=== PATIENT | female | born 1940 | race American Indian/Alaskan Native ===

== ENCOUNTER 2017-02-28 13:27 | Outpatient (CLI) | payer MEDICARE ==
--- NOTE | 2017-02-28 15:20 | XRay Report ---
PA and lateral chest: Wheezing, cough. The aorta is tortuous and the heart is normal in size. The lungs are hyperinflated. There are no infiltrates nor effusions. No vascular congestion. Unremarkable bony structures. No prior exam for comparison. Impression: Hyperinflation.
== END 2017-02-28 13:28 | disposition home or self-care (01) ==
LOC: XRAY 13:27
PROVIDERS: ATTEND Internal Medicine
DX: J98.11 Atelectasis (principal); R06.2 Wheezing
CPT/HCPCS: 71020

== ENCOUNTER 2017-07-07 10:03 | Outpatient (CLI) | payer MEDICARE ==
[2017-07-07 10:50] LABS: Blood Urea Nitrogen 29 mg/dL (7-17)
--- NOTE | 2017-07-07 14:37 | Cat Scan Report ---
FINAL REPORT PROCEDURE: CT ABDOMEN PELVIS W CON TECHNIQUE: Computerized axial tomography of the abdomen and pelvis was performed after the IV injection of iodinated nonionic contrast. HISTORY: LEFT LOWER QUADRANT PAIN COMPARISON: No prior studies are available for comparison. FINDINGS: Lower Lung schulte: Right diaphragm is elevated of indeterminate chronicity. There are no prior studies. There is minimal dependent atelectasis. Lung bases otherwise are clear. Upper Abdomen: There is a 5.8 millimeter well-circumscribed low-density nodule in the left lobe of the liver anteriorly inferiorly suggesting a small hepatic cyst. The liver is otherwise unremarkable. The gallbladder is surgically absent. The adrenal glands, the pancreas and the spleen are unremarkable. Kidneys, Ureters and Urinary bladder: There is a nonobstructing 5.3 x 2.7 millimeter calculus in the upper 3rd of the left kidney. No other renal or ureteral calculi are seen. There is no hydronephrosis. No renal masses are identified. Urinary bladder is only partially filled and shows no gross abnormality. Retroperitoneum: Atherosclerotic changes are seen in the abdominal aorta. No aneurysm is visualized. Nonspecific subcentimeter lymph nodes are seen in the retroperitoneum. No pathologically enlarged lymph nodes are identified. Bowel: There is mild sigmoid diverticulosis and mild diverticulosis in the splenic flexure and descending colon. No evidence of diverticulitis. No evidence of bowel obstruction ascites or free intraperitoneal gas. The appendix is not visualized. No inflammatory change seen in the right lower quadrant. There is a moderate size umbilical hernia containing adipose tissue. No herniated loops of bowel are identified. Reproductive organs: Uterus appears to be surgically absent. No abnormal adnexal masses are seen. There is increased prominence of the soft tissues in the perineum anteriorly. This may be due to relaxation of the pelvic floor. I cannot exclude a the vaginal mass. Correlation with physical exam recommended. Other: No acute bony abnormalities are identified. There asymmetry in the musculature of the lateral ocasio of the abdomen. On images 57 through image 83 there is a band of increased soft tissue projecting towards peritoneal cavity. This measures 4 point 3 centimeter AP, 2.2 centimeter transverse and extends craniocaudal approximately 7 centimeters. Etiology is uncertain. This could be related to previous trauma to the musculature of the left lateral abdominal wall and mild muscular herniation centrally. I cannot exclude a muscular mass or lymphoma. Hematoma could also present this manner. Correlation with physical exam recommended. This is seen on axial images 59 through image 87 series 3 axial images. This is also visualized on coronal image 81 series 201 and multiple adjacent images. IMPRESSION: Mild colonic diverticulosis without evidence of diverticulitis. Prior cholecystectomy. Small hepatic cyst is suspected. Small nonobstructing calculus left kidney. Asymmetric prominence left lateral abdominal wall as described. This could represent benign etiology such as internal muscular hernia from previous trauma. I cannot exclude a mass such as a primary muscular mass or lymphoma. Hemorrhage could also present in this manner. Correlation with physical exam is recommended. Please see above image reference numbers. Prominent soft tissues in the region of the vagina inferiorly anteriorly. Soft tissues appear mildly asymmetric and mildly prominent.. This could be artifact from relaxation of the pelvic floor. A mass cannot be excluded. Correlation with physical exam is recommended. This is seen on sagittal reconstruction image 96 series 202 and axial image 149 series 3. Moderate-sized umbilical hernia present as described.
== END 2017-07-07 10:04 | disposition home or self-care (01) ==
LOC: CT 10:03
PROVIDERS: ATTEND Internal Medicine
DX: N20.0 Calculus of kidney (principal); K57.30 Diverticulosis of large intestine without perforation or abscess without bleeding; K42.9 Umbilical hernia without obstruction or gangrene; J98.6 Disorders of diaphragm; J98.11 Atelectasis; I70.0 Atherosclerosis of aorta; Z90.49 Acquired absence of other specified parts of digestive tract; Z90.710 Acquired absence of both cervix and uterus
CPT/HCPCS: 36415; 74177; 82565; 84520; Q9967

== ENCOUNTER 2017-07-30 13:30 | Outpatient (CLI) | payer MEDICARE ==
--- NOTE | 2017-07-30 14:23 | XRay Report ---
CHEST 2 VIEWS INDICATION: Cough. COMPARISON: 02/28/2017 FINDINGS: PA and lateral chest radiographs demonstrate stable cardiomediastinal silhouette. Clear, slightly hyperexpanded lungs. Demineralized bones with few age-appropriate degenerative changes as along the spine and shoulders. Stable cholecystectomy clips. CONCLUSION: No acute chest process, stable. Thank you for the opportunity to participate in this patient's care.
== END 2017-07-30 13:31 | disposition home or self-care (01) ==
LOC: XRAY 13:30
PROVIDERS: ATTEND Internal Medicine
DX: R05 Cough (principal); R50.9 Fever, unspecified; M47.894 Other spondylosis, thoracic region; M19.011 Primary osteoarthritis, right shoulder; M19.012 Primary osteoarthritis, left shoulder; Z90.49 Acquired absence of other specified parts of digestive tract
CPT/HCPCS: 71046

== ENCOUNTER 2017-11-27 06:05 | Observation (INO) | payer MEDICARE ==
[2017-11-27] MEDS ORDERED: NACL BACTERIOSTATIC INFILTRATI ONE (06:36)
[2017-11-27] MEDS ORDERED: ZOFRAN IV PRN ×2 (06:58→10:49)
[2017-11-27] MEDS ORDERED: DILAUDID IV PRN (06:58)
[2017-11-27] MEDS ORDERED: SUBLIMAZE IV ONE (06:58)
[2017-11-27] MEDS ORDERED: FLAGYL 500 MG/100 ML 500 MG/100 ML BAG IV SCH (07:00)
[2017-11-27] MEDS ORDERED: XYLOCAINE 1% 20 mL INFILTRATI NR (07:00)
[2017-11-27] MEDS ORDERED: VERSED IV NR (07:00)
[2017-11-27] MEDS ORDERED: LEVAQUIN 500MG/100ML 500 MG/100 ML BAG IV SCH (07:00)
[2017-11-27] MEDS ORDERED: MARCAINE 0.5% INFILTRATI NR ×2 (07:00→07:14)
[2017-11-27] MEDS ORDERED: NEURONTIN PO NR (07:00)
[2017-11-27] MEDS ORDERED: LACTATED RINGERS 1,000 ML IV SCH (07:00)
--- NOTE | 2017-11-27 07:11 | Anesthesia Consultation ---
Anesthesia Consult and Med Hx Date of service: 11/27/17 - Airway Anesthetic Teeth Evaluation: Good ROM Head & Neck: Adequate Mental/Hyoid Distance: Adequate Mallampati Class: Class II Intubation Access Assessment: Good - Pulmonary Exam CTA: Yes - Cardiac Exam Cardiac Exam: No Murmur - Pre-Operative Health Status ASA Pre-Surgery Classification: ASA3 Proposed Anesthetic Plan: General Nerve Block: TAP - Pulmonary Hx Smoking: Yes (QUIT IN 1991) - Cardiovascular System Hx Hypertension: Yes (IN THE 80'S) - Central Nervous System Hx Psychiatric Problems: Yes (DEMENTIA) - Endocrine Hx Non-Insulin Dependent Diabetes: Yes - Other Systems Hx Alcohol Use: No Hx Substance Use: No Hx Cancer: No
--- NOTE | 2017-11-27 07:12 | Anesthesia Day of Surgery ---
Anesthesia Day of Surgery - Day of Surgery Patient Examined: Yes Patient H&P Reviewed: Yes Patient is NPO: Yes
[2017-11-27] MEDS ORDERED: PEPCID IV ONE (07:25)
[2017-11-27] MEDS ORDERED: ZOFRAN ONE (07:38)
[2017-11-27] MEDS ORDERED: QUELICIN ONE (07:38)
[2017-11-27] MEDS ORDERED: SUBLIMAZE ONE (07:38)
[2017-11-27] MEDS ORDERED: REGLAN ONE (07:38)
[2017-11-27] MEDS ORDERED: XYLOCAINE MPF 2% ONE (07:38)
[2017-11-27] MEDS ORDERED: DIPRIVAN 10 MG/ML IV ONE (07:39)
[2017-11-27] MEDS: HEPARIN SUB-Q NR ×2 (07:51→22:11)
[2017-11-27] MEDS ORDERED: BUPIVACAINE LIPOSOME INFILTRATI ONE (08:00)
[2017-11-27] MEDS ORDERED: PEPCID PO NR (08:00)
[2017-11-27] MEDS ORDERED: SODIUM CHLORIDE 0.9% INFILTRATI ONE (08:00)
[2017-11-27] MEDS ORDERED: DECADRON IV NR (08:00)
[2017-11-27] MEDS ORDERED: ZEMURON IV ONE (08:00)
[2017-11-27] MEDS ORDERED: LACTATED RINGERS 1,000 ML ONE ×2 (08:19→10:38)
[2017-11-27] MEDS ORDERED: ePHEDrine 50 MG/5 ML-0.9% NACL IV ONE (08:28)
[2017-11-27] MEDS ORDERED: NACL 0.9% IR ONE (09:14)
[2017-11-27] MEDS ORDERED: ROBINUL ONE (10:25)
[2017-11-27] MEDS ORDERED: BLOXIVERZ ONE (10:25)
[2017-11-27] MEDS ORDERED: TYLENOL PO PRN (10:49)
[2017-11-27] MEDS ORDERED: SODIUM CHLORIDE FLUSH SYRINGE 10 ML IV PRN (10:49)
[2017-11-27] MEDS ORDERED: NARCAN 0.4 MG/1 ML IV PRN (10:49)
[2017-11-27] MEDS ORDERED: NORCO 5/325 PO PRN (10:49)
--- NOTE | 2017-11-27 10:49 | Post Operative Note ---
Date of procedure: 11/27/17 Pre-op diagnosis: recurrent ventral hernia Post-op diagnosis: same Findings: large amount of omentum adhered to old mesh. Old mesh excised. Hernia measured 4cm x 5cm. Procedure: Robotic assisted laparoscopic recurrent ventral hernia repair with mesh, lysis of adhesions Anesthesia: GETA, local, other (TAP block) Surgeon: JOHNATHAN BENTON Estimated blood loss: minimal Pathology: list (old mesh) Specimen disposition: to lab Condition: stable Disposition: PACU
[2017-11-27] MEDS ORDERED: D5/0.45NS 1,000 ML IV SCH (11:00)
[2017-11-27] MEDS: TORADOL IV SCH ×4 (12:30→23:47)
--- NOTE | 2017-11-27 13:56 | Operative Report ---
Operative Report Operative Report: Date of procedure: 11/27/17 Pre-op diagnosis: recurrent ventral hernia Post-op diagnosis: same Findings: large amount of omentum adhered to old mesh. Old mesh excised. Hernia measured 4cm x 5cm. Procedure: Robotic assisted laparoscopic recurrent ventral hernia repair with mesh, lysis of adhesions, excision of old mesh Anesthesia: GETA, local, other (TAP block) Surgeon: JOHNATHAN BENTON Estimated blood loss: minimal Pathology: list (old mesh) Specimen disposition: to lab Condition: stable Disposition: PACU HPI and indication: The patient is a 77 yo F who was seen in the office for symptomatic umbilical hernia. The patient has a history of open UHR with mesh. She unfortunately had a reoccurence which was causing her significant pain. She was therefore optimized medically and obtained medical clearance. All risks, benefits, and alternatives to surgery were discussed with the patient and her family and all questions were answered. Consent was obtained. Procedure in detail:The patient was identified in the preoperative area and taken back to the operating room and placed on the operating room table in supine position. After anesthesia was induced, a Gonzalez catheter was sterilely placed by the circulating nurse and arms tucked with adequate padding. The abdomen was then prepped and draped in usual sterile fashion and a timeout was performed. The abdomen was insufflated via a veress needle in the left upper quadrant. The position of the veress needle was confirmed using the saline drop test. The abdomen was insufflated to 15 mmHg and veress needle removed. An incision was made in the left upper quadrant and a 12 mm Optiview trocar was inserted through this incision. Abdomen was inspected and there was no underlying injury to any of the abdominal contents. Upon inspection, the patient had dense omental adhesions to the midline abdominal wall. The patient was then placed in jackknife position and tilted towards the left. 2, 8 mm robotic trocars were placed under direct visualization, the first in the right upper quadrant and the second in the right lower quadrant. A 12 mm balloon trocar was placed in the right mid abdomen laterally. The robot was then docked in the usual fashion. First, adhesiolysis was performed and omental adhesions to the anterior abdominal wall and to the old mesh were taken down using a monopolar scissors. Once all of the adhesions were taken down, the entire old mesh was visible. One portion of the mesh was folded down and a hernia was seen posterior to this. The old mesh was dissected free from the underlying peritoneum and excised entirely in order to see the defect in its entirety and to facilitate defect closure. This was removed via the 12mm machine assistant port as a specimen. The hernia defect was measured and was approximately 4cm x 5cm. A 12 cm round parietex composite mesh was used to repair the hernia. The hernia defect was closed using 0-vlock running suture. The mesh was rolled and placed into the 12mm left upper quadrant machine assistant trocar. The mesh was unrolled with peritoneal side towards the abdominal wall and was sutured into place circumferentially using 2- 0 V loc suture. The abdomen was inspected and no injury seen and hemostasis was carefully achieved during the entire dissection and ensured at the end of the case. The robot was then undocked. The fascia of the 12 mm ports was closed using 0 vicryl using the ani graves device. The remaining trocars were removed under direct visualization and the abdomen slowly desufflated. Mesh was seen to lay flat. The skin incisions were closed with 4-0 Monocryl subcuticular stitches and skin glue. At the end of the case, all sponge, instrument, sharp counts were correct 2. The patient was awoken from anesthesia, extubated and taken to PACU in stable condition. The gonzalez catheter was removed. An abdominal binder was applied.
[2017-11-27] MEDS: HEPARIN SUB-Q SCH ×2 (14:00→23:50)
--- NOTE | 2017-11-27 17:06 | Post Anesthesia Evaluation ---
- Post Anesthesia Evaluation Patient Participated: Yes Airway Patent: Yes Stable Respiratory Function: Yes Nausea/Vomiting: No Temp > 96.8F: Yes Pain Manageable: Yes Adequeate Hydration: Yes Anesthesia Complications: No
[2017-11-27] MEDS: GLUCOPHAGE PO SCH (17:20)
[2017-11-27] MEDS ORDERED: LANTUS SUB-Q SCH (22:00)
[2017-11-28] MEDS: SODIUM CHLORIDE FLUSH SYRINGE 10 ML IV SCH ×2 (03:02→10:39)
[2017-11-28] MEDS: HEPARIN SUB-Q SCH (05:59)
[2017-11-28] MEDS ORDERED: NORVASC PO SCH (10:00)
[2017-11-28] MEDS: GLUCOPHAGE PO SCH (10:39)
[2017-11-28 11:45] VITALS: BP 136/67
--- NOTE | 2017-11-28 11:45 | Discharge Summary ---
Providers - Providers Date of Admission: 11/27/17 10:49 Date of discharge: 11/28/17 Attending physician: JOHNATHAN BENTON DO Primary care physician: CLIFFORD CAMACHO Hospitalization Reason for admission: s/p ventral hernia repair Condition: Good Procedures: Robotic assisted laparoscopic excision of old mesh, lysis of adhesions, and repair of recurrent ventral hernia with mesh. Hospital course: The patient underwent the above procedure. Post operative course was uncomplicated. She was tolerating a diet, ambulating, and pain controlled with oral pain medications. The patient was discharged to home in stable condition. Disposition: DC-01 TO HOME OR SELFCARE Time spent for discharge: 20 minutes Core Measure Documentation - Palliative Care Palliative Care/ Comfort Measures: Not Applicable - Core Measures Any of the following diagnoses?: none Exam - Physical Exam Narrative exam: Gen: AAOx3. NAD CV: S1, S2+ resp: even and unlabored Abd: soft, NT, ND. incisions c/d/i. Abd binder reapplied Ext; no c/c/e - Constitutional Vitals: Temp Pulse Resp BP Pulse Ox 97.9 F 71 20 141/80 97 11/28/17 07:08 11/28/17 07:08 11/28/17 07:08 11/28/17 07:08 11/28/17 11:26 Plan Activity: other (no lifting more than 15 lbs for 6 weeks. ) Diet: low fat Wound: open to air (May shower, pat incisions dry, do not scrub or submerge in baths/hottubs/pools. Wear abdominal binder at all times except for shower.) Additional Instructions: Use tylenol or ibuprofen for pain control. Use prescription pain medication for severe pain. Follow up with: CLIFFORD CAMACHO MD [Primary Care Provider] - 7 Days JOHNATHAN BENTON DO [Staff Physician] - 14 Days Prescriptions: HYDROcodone/APAP 5-325 [Gustavus 5-325 mg TAB] 2 each PO Q6H PRN #15 tablet PRN Reason: Pain , Severe (7-10)
[2017-11-28] MEDS ORDERED: PNEUMOVAX 23 IM ONE (12:00)
== END 2017-11-28 14:47 | disposition home or self-care (01) ==
LOC: OR 06:05 → 3B-SURG 10:49
PROVIDERS: ADMIT Surgery; ATTEND Surgery
DX: K43.9 Ventral hernia without obstruction or gangrene (principal); E11.9 Type 2 diabetes mellitus without complications; I10 Essential (primary) hypertension; E78.5 Hyperlipidemia, unspecified; E66.9 Obesity, unspecified; Z79.899 Other long term (current) drug therapy
CPT/HCPCS: 36415; 49657; 64450; 82962; 84132; 88302; 90732; 94760; 96372; 96374; C1781; G0378; J0330; J1100; J1644; J1885; J1956; J2250; J2405; J2704; J2710; J2765; J3010; J7120; S2900; J1815

== ENCOUNTER 2018-09-10 08:55 | Outpatient (CLI) | payer MEDICARE | END 2018-09-10 08:56 | disposition home or self-care (01) | LOC: LAB 08:55 | PROVIDERS: ATTEND Internal Medicine | DX: E11.9 Type 2 diabetes mellitus without complications (principal); E78.5 Hyperlipidemia, unspecified; I10 Essential (primary) hypertension; E78.00 Pure hypercholesterolemia, unspecified; Z87.891 Personal history of nicotine dependence | CPT/HCPCS: 36415; 83036 ==